=== PATIENT | female | born 1950 | race Hispanic/Latino ===

== ENCOUNTER 2024-03-01 20:07 | Emergency (ER) | payer OTHER ==
[~2024-03-01] VITALS: Ht 154.9 cm; Wt 68.9 kg
[2024-03-01] MEDS: HYDROcodone/APAP 5/325 1 TAB TABLET PO ONE (21:01)
--- NOTE | 2024-03-01 21:24 | HMCIMG ---
SHOULDER COMP 2+VWS RT CLINICAL HISTORY: fall COMPARISON: None TECHNIQUE: 2 images were obtained. FINDINGS: No obvious fracture or dislocation. No joint effusion. The soft tissues appear unremarkable. No radiopaque foreign bodies. IMPRESSION: No acute findings.
--- NOTE | 2024-03-01 21:33 | HMCIMG ---
KNEE 3VWS RT CLINICAL HISTORY: fall COMPARISON: None TECHNIQUE: AP lateral and oblique images were obtained. FINDINGS: No obvious fracture or dislocation. No joint effusion. The soft tissues appear unremarkable. No radiopaque foreign bodies. IMPRESSION: No acute findings.
--- NOTE | 2024-03-01 21:36 | ERN ---
General Chief Complaint: Mechanical Fall Stated Complaint: FALL FROM STANDING, -LOC, - ANTICOAGULANTS Time Seen by MD: 20:10 Time Seen by Midlevel: 20:10 Source: patient History of Present Illness Initial Comments Patient is a 74-year-old female with a past medical history of type 2 diabetes and hypertension presenting to the emergency department following a mechanical ground level fall. Patient states she was at a local store when she tripped on a shelf. She tried to stop her fall with the right arm and felt a pop in her right shoulder. She reports falling to her knees. On arrival she does report right shoulder and right knee pain. Denies any head injury or loss of consciousness. Denies being on any blood thinners. No other symptoms reported at this time. Allergies: Coded Allergies: Penicillins (Unverified Allergy, Unknown, 03/01/24) Past Medical History Past Medical History: Diabetes-Type II, Hypertension Past Surgical History: Cholecystectomy ROS Dictation CONSTITUTIONAL: Negative except for HPI HEAD/FACE: Negative except for HPI EENT: Negative except for HPI RESPIRATORY: Negative except for HPI GASTROINTESTINAL/ABDOMINAL: Negative except for HPI GENITOURINARY: Negative except for HPI MUSCULOSKELETAL: Negative except for HPI INTEGUMENTARY: Negative except for HPI NEUROLOGICAL/PSYCH: Negative except for HPI HEMATOLOGIC/LYMPHATIC: Negative except for HPI All Systems Negative, Except as noted above. 13 point review of systems assessed and all negative except for above. Physical Exam Physical Exam Dictation Vital Signs reviewed General Appearance: Alert, oriented x 3, no acute distress, well developed, nourished. Head and Face: non-traumatic. Eyes: PERRL, pink conjunctivas, eyelid no trauma, anterior chamber with arcus senilis. Ears: Pinnas intact and no signs of trauma or erythema ear canals clear and no discharge TM no erythema Nose: No discharge, no bleeding. Oropharynx: Mouth normal, tongue pink, pharynx clear,no erythema, tonsils no exudates, no abscesses noted, mucous membrane moist Neck: Supple, non-tender, no thyromegaly, no masses, no JVD, no bruits Breast:Deferred Chest:No tenderness, no crepitus, no paradoxical movement, no retractions Lungs:Clear, well-ventilated, symmetric, no rales, no wheezing, no rhonchi, no stridor, good breath sounds bilaterally Heart: Regular rate, regular rhythm, no murmur, no gallops Vascular: no peripheral edema, Abdomen: Soft, positive bowel sounds, nondistended, no guarding, nontender, no rebound, no masses no hepatomegaly, no splenomegaly, no Carlin's sign, no hernias. Rectal: Deferred Genital: Deferred Neurological: Normal speech, motor function intact, sensory function intact Musculoskeletal: Neck nontender, full range of motion, back nontender, full ra nge of motion, Extremities: nontender, full range of motion Skin: Color pink, dry, no turgor, no rash, no lacerations, no abrasions, no contusions. Lymphatic: Deferred MDM MDM: Patient is a 74-year-old female with a past medical history of type 2 diabetes and hypertension presenting to the emergency department following a mechanical ground level fall. Patient states she was at a local store when she tripped on a shelf. She tried to stop her fall with the right arm and felt a pop in her right shoulder. She reports falling to her knees. On arrival she does report right shoulder and right knee pain. Denies any head injury or loss of consciousness. Denies being on any blood thinners. No other symptoms reported at this time. On physical examination patient has painful range motion of the right shoulder. There are no obvious signs of external trauma. There are no step-offs or signs of shoulder dislocation. Patient has strong radial pulse with capillary refill of less than 2 seconds. Patient has some mild tenderness over the right knee. There is full range motion of the right knee. No obvious signs of external trauma. 2+ PT, DP pulses bilaterally. Sensation is intact. X-ray of the right shoulder and right knee were obtained and do not show any acute fracture or dislocation. The patient was placed on a sling and will be discharged home with supportive management. No need for advanced imaging at this time given her unremarkable neurological examination. She has a GCS of 15. No signs of external trauma to the scalp or face or neck. There was no midline tenderness to her back and neck area. She was alert and oriented x4. Patient was stable for discharge at this time Differential diagnosis: Strain, sprain, contusion, fracture There are no social concerns with this patient. Prescription drug management Prescriptions will include: None Medical management and examination interpretation discussions were had by me with other qualified healthcare professionals as indicated for the patient's care. ED Course Orders Procedure Category Date Status Time Hydrocodone/Apap PHA 03/01/24 Complete 5/325 ([place] 5/325mg) 21:00 Knee 3vws Rt RAD 03/01/24 Resulted 20:55 Shoulder Comp 2+Vws Rt RAD 03/01/24 Resulted 20:55 Humerus 2+Vws Rt RAD 03/01/24 Resulted 20:55 Current Medications Medications (Trade) Dose Ordered Sig/Aria Route PRN Reason Start Time Stop Time Status Last Admin Dose Admin Acetaminophen/ Hydrocodone Bitart (NORco 5/325MG) 1 tab ONCE ONCE PO 03/01/24 21:00 03/01/24 21:01 DC 03/01/24 21:01 Vital Signs Date Time Temp Pulse Resp B/P (MAP) Pulse Ox O2 Delivery O2 Flow Rate FiO2 03/01/24 21:40 98.1 82 20 150/60 97 Room Air* 0 03/01/24 20:13 98.8 84 18 180/69 98 Room Air* 0 03/01/24 20:09 98.8 70 16 206/94 99 Room Air* 0 03/01/24 20:09 98.8 70 16 206/94 99 Room Air 0 [place] [id number] [address] IMAGING REPORT Signed PATIENT: LISA RO MR#: [id number] : 1950 SEX: F AGE: 74 LOCATION: [facility] ORDER 55 STATUS: [facility] REPORT#: [id number] SERVICE 54 REASON: fall ORDERING PHYSICIAN: CHHAYA ABRAHAM PROCEDURE: SHOL 2V RT - SHOULDER COMP 2+VWS RT SHOULDER COMP 2+VWS RT CLINICAL HISTORY: fall COMPARISON: None TECHNIQUE: 2 images were obtained. FINDINGS: No obvious fracture or dislocation. No joint effusion. The soft tissues appear unremarkable. No radiopaque foreign bodies. IMPRESSION: No acute findings. DICTATED BY: TIGIST YAO DO DATE: 03/01/242121 ELECTRONICALLY SIGNED BY: TIGIST YAO DO DATE: 03/01/242123 [place] [id number] [place] [address] IMAGING REPORT Signed PATIENT: LISA RO MR#: [id number] : 1950 SEX: F AGE: 74 LOCATION: [facility] ORDER 55 STATUS: REG ER REPORT#: [id number] SERVICE 54 REASON: fall ORDERING PHYSICIAN: CHHAYA ABRAHAM PROCEDURE: KNEE 3V RT - KNEE 3VWS RT KNEE 3VWS RT CLINICAL HISTORY: fall COMPARISON: None TECHNIQUE: AP lateral and oblique images were obtained. FINDINGS: No obvious fracture or dislocation. No joint effusion. The soft tissues appear unremarkable. No radiopaque foreign bodies. IMPRESSION: No acute findings. DICTATED BY: TIGIST YAO DO DATE: 03/01/242129 ELECTRONICALLY SIGNED BY: TIGIST YAO DO DATE: 03/01/242132 [address] [place] [id number] IMAGING REPORT Signed PATIENT: LISA RO MR#: [id number] : 1950 SEX: F AGE: 74 LOCATION: ED ORDER 55 STATUS: [facility] REPORT#: [id number] SERVICE 54 REASON: fall ORDERING PHYSICIAN: CHHAYA ABRAHAM PROCEDURE: HUM 2V RT - HUMERUS 2+VWS RT HUMERUS 2+VWS RT CLINICAL HISTORY: fall COMPARISON: None TECHNIQUE: AP and lateral images were obtained. FINDINGS: No obvious fracture or dislocation. No joint effusion. The soft tissues appear unremarkable. No radiopaque foreign bodies. IMPRESSION: No acute findings. DICTATED BY: TIGIST YAO DO DATE: 03/01/242139 ELECTRONICALLY SIGNED BY: TIGIST YAO DO DATE: 03/01/242143 DX & DISP Disposition: Discharge Departure Impression: Primary Impression: Fall Additional Impressions: Contusion of knee, right, Right shoulder strain Condition: Stable Additional Instructions: Your right shoulder, right knee, and right upper arm x-ray did not show any evidence of an acute fracture or dislocation. You may take Tylenol and Motrin for pain. Follow up with your primary care doctor in 2-3 days for repeat evaluation. Return to the ER if you develop any new or worsening symptoms. Referrals: SELF,REFERRAL (PCP) I have reviewed the case, and I agree with, Diagnosis and Plan I performed the substantive portion of the visit. I have reviewed and personally made and approve the management plan that is documented in the note by myself or the KANU. I acknowledge for responsibility for the patient's ma nagement plan. CHHAYA ABRAHAM Mar 01, 2024 21:36
[2024-03-01 21:40] VITALS: BP 150/60; PULSE 82; RESP 20; TEMP 98.1; O2SAT 97
--- NOTE | 2024-03-01 21:44 | HMCIMG ---
HUMERUS 2+VWS RT CLINICAL HISTORY: fall COMPARISON: None TECHNIQUE: AP and lateral images were obtained. FINDINGS: No obvious fracture or dislocation. No joint effusion. The soft tissues appear unremarkable. No radiopaque foreign bodies. IMPRESSION: No acute findings.
== END 2024-03-01 21:50 | disposition home or self-care (01) ==
LOC: EDH 20:07
DX: S46.811A Strain of other muscles, fascia and tendons at shoulder and upper arm level, right arm, initial encounter (principal); S80.01XA Contusion of right knee, initial encounter; E11.9 Type 2 diabetes mellitus without complications; I10 Essential (primary) hypertension; Z88.0 Allergy status to penicillin; Z90.49 Acquired absence of other specified parts of digestive tract; W01.0XXA Fall on same level from slipping, tripping and stumbling without subsequent striking against object, initial encounter; Y93.89 Activity, other specified; Y92.512 Supermarket, store or market as the place of occurrence of the external cause; Y99.8 Other external cause status
CPT/HCPCS: 73030; 73060; 73562; 99283